=== PATIENT | male | born 1990 | race Two or more races ===

== ENCOUNTER 2022-10-30 22:55 | Emergency (ER) | payer OTHER ==
[~2022-10-30] VITALS: Ht 172.7 cm; Wt 97.7 kg
[2022-10-30] MEDS ORDERED: orphenadrine citrate 60mg/2ml inj. IM ONE (23:50)
[2022-10-30] MEDS ORDERED: ketorolac trometh inj. 60 MG/2 ML VIAL IM ONE (23:50)
[2022-10-30] MEDS ORDERED: CYCL-1 PO (23:53)
[2022-10-30] MEDS ORDERED: IBUP-1984 PO (23:53)
[2022-10-31 00:07] VITALS: BP 129/87
== END 2022-10-31 00:08 | disposition home or self-care (01) ==
LOC: ER 22:57
DX: S29.011A Strain of muscle and tendon of front wall of thorax, initial encounter (principal); Z79.899 Other long term (current) drug therapy; X58.XXXA Exposure to other specified factors, initial encounter; Y93.89 Activity, other specified; Y92.89 Other specified places as the place of occurrence of the external cause; Y99.8 Other external cause status
CPT/HCPCS: 71045; 96372; 99284; J1885; J2360

== ENCOUNTER 2023-02-12 11:22 | Emergency (ER) | payer BC, OTHER ==
[~2023-02-12] VITALS: Ht 172.7 cm; Wt 99.1 kg
[~2023-02-12 11:22] MED LIST: CYCL-1 PO
[2023-02-12 14:09] LABS: BASOPHILS % (AUTO) 0.3 % (0-1); EOSINOPHILS % (AUTO) 0.6 % (0-6); HEMATOCRIT 44.1 % (42.0-52.0); HEMOGLOBIN 15.1 g/dl (14.0-17.9); MEAN CORPUSCULAR HEMOGLOBIN 30.9 PG (27.0-31.0); MEAN CORPUSCULAR HGB CONC 34.1 g/dL (33.0-36.5); MEAN CORPUSCULAR VOLUME 90.7 FL (78-98); MEAN PLATELET VOLUME 6.9 FL (7.4-10.4); MONOCYTES # (AUTO) 0.6 X10'3 (0-0.9); MONOCYTES % (AUTO) 7.9 % (2-12); NEUTROPHILS # (AUTO) 4.8 X10'3 (1.8-7.7); NEUTROPHILS % (AUTO) 64.2 % (42-75); PLATELET COUNT 322 X10'3 (140-440); RED BLOOD COUNT 4.86 X10'6 (4.70-6.10); RED CELL DISTRIBUTION WIDTH 12.1 % (11.5-14.5); WHITE BLOOD COUNT 7.5 X10'3 (4.5-11.0)
[2023-02-12 14:39] VITALS: TEMP 97.8
[2023-02-12 14:44] LABS: ALANINE AMINOTRANSFERASE 41 U/L (12-78); ALBUMIN 4.4 G/DL (3.4-5.0); ALBUMIN/GLOBULIN RATIO 1.3 (1.1-1.5); ALKALINE PHOSPHATASE 73 IU/L (46-116); ANION GAP 8 (8-16); ASPARTATE AMINO TRANSFERASE 24 U/L (10-37); BILIRUBIN,TOTAL 0.4 MG/DL (0.1-1.0); BLOOD UREA NITROGEN 16 MG/DL (7-18); CALCIUM 9.1 MG/DL (8.5-10.1); CHLORIDE 105 MMOL/L (99-107); GLUCOSE 114 MG/DL (70-104); LIPASE 60 U/L (73-393); SODIUM 140 MMOL/L (135-145); TOTAL CARBON DIOXIDE 26.7 MMOL/L (24-32); TOTAL PROTEIN 7.7 G/DL (6.4-8.2); eCRCL 105 ML/MIN; eGFR 88 ML/MIN
[2023-02-12 15:10] LABS: BILIRUBIN,URINE NEGATIVE (Neg); CLARITY,URINE CLEAR (Clear); COLOR,URINE YELLOW (Yellow); GLUCOSE, URINE NEGATIVE (Neg); KETONES,URINE NEGATIVE (Neg); LEUKOCYTE ESTERASE ,URINE NEGATIVE (Neg); NITRITES, URINE NEGATIVE (Neg); OCCULT BLOOD,URINE TRACE-INTACT (Neg); PH,URINE 5.5 (4.8-8.0); PROTEIN,URINE NEGATIVE (Neg); UROBILINOGEN,URINE 0.2 E.U/dL (0.2-1.0)
[2023-02-12 15:19] LABS: UA COLLECTION TYPE CLN CATCH MIDSTREAM
[2023-02-12 15:23] LABS: BACTERIA,URINE NONE SEEN /HPF (Neg); HYALINE CASTS 0-3 /LPF (NEGATIVE); MUCUS STRANDS FEW /LPF (Neg); RBC,URINE NONE SEEN /HPF (0-2); SQUAMOUS EPITHELIAL CELL,UR FEW /LPF (FEW); WBC,URINE 0-4 /HPF (0-4)
[2023-02-12 17:00] VITALS: BP 110/68; PULSE 72; O2SAT 100
[2023-02-12] MEDS ORDERED: NAPR-56 PO (17:09)
[2023-02-12] MEDS ORDERED: CYCL-1 PO (17:09)
[2023-02-12] MEDS ORDERED: ketorolac tromethamine 15mg/ml inj. IM ONE (17:15)
[2023-02-12] MEDS ORDERED: ketorolac trometh inj. 60 MG/2 ML VIAL IM ONE (17:15)
[2023-02-12] MEDS ORDERED: diazepam inj 5 MG/ML inj. IM ONE (17:15)
[2023-02-12 17:24] VITALS: RESP 18
== END 2023-02-12 17:42 | disposition home or self-care (01) ==
LOC: ER 11:22
DX: S39.011A Strain of muscle, fascia and tendon of abdomen, initial encounter (principal); Z79.899 Other long term (current) drug therapy; X58.XXXA Exposure to other specified factors, initial encounter; Y93.89 Activity, other specified; Y92.89 Other specified places as the place of occurrence of the external cause; Y99.8 Other external cause status
CPT/HCPCS: 36415; 80053; 81001; 83690; 85025; 96372; 99284; J1885; J3360

== ENCOUNTER 2023-04-06 13:41 | Emergency (ER) | payer BC ==
[~2023-04-06] VITALS: Ht 172.7 cm; Wt 97.7 kg
[2023-04-06 13:53] VITALS: BP 152/92; PULSE 82; RESP 20; TEMP 96.9; O2SAT 99
[2023-04-06] MEDS ORDERED: LIDOcaine 1% 30ml preserv. free vial IJ STA (15:52)
== END 2023-04-06 17:02 | disposition home or self-care (01) ==
LOC: ER 13:41
DX: S01.511A Laceration without foreign body of lip, initial encounter (principal); Z79.899 Other long term (current) drug therapy; W22.8XXA Striking against or struck by other objects, initial encounter; Y93.89 Activity, other specified; Y92.89 Other specified places as the place of occurrence of the external cause; Y99.8 Other external cause status
CPT/HCPCS: 40650; 99284; A6449